=== PATIENT | male | born 1985 | race African-American/Black ===

== ENCOUNTER 2018-07-17 10:09 | Outpatient (CLI) | payer OTHER ==
--- NOTE | 2018-07-17 14:22 | Diagnostic Imaging Report ---
Indication: Cough Technique: 2 views of the chest Comparison: None Findings: Lungs and pleural spaces are clear. Heart size is normal. Impression: Negative
== END 2018-07-17 12:09 | disposition home or self-care (01) ==
LOC: RAD 10:09
DX: Z11.1 Encounter for screening for respiratory tuberculosis (principal); R05 Cough
CPT/HCPCS: 71046